=== PATIENT | female | born 1980 | race Hispanic/Latino ===

== ENCOUNTER 2022-01-06 05:25 | Emergency (ER) | payer SELFPAY ==
[2022-01-06 05:39] VITALS: BP 143/108
== END 2022-01-06 09:01 | disposition left against medical advice (07) ==
LOC: ED 05:25
DX: T15.92XA Foreign body on external eye, part unspecified, left eye, initial encounter (principal); Z53.21 Procedure and treatment not carried out due to patient leaving prior to being seen by health care provider; X58.XXXA Exposure to other specified factors, initial encounter; Y93.89 Activity, other specified; Y92.89 Other specified places as the place of occurrence of the external cause; Y99.8 Other external cause status